=== PATIENT | female | born 1950 | race Caucasian/White ===

== ENCOUNTER 2018-05-05 08:37 | Emergency (ER) | payer MEDICARE, OTHER ==
[~2018-05-05] VITALS: Ht 170.2 cm; Wt 82.0 kg
[2018-05-05] MEDS ORDERED: LISI-170 PO (09:07)
[2018-05-05] MEDS ORDERED: CLON0.5T11 PO (09:08)
[2018-05-05] MEDS ORDERED: CYCL-259 PO (09:09)
[2018-05-05] MEDS ORDERED: DORZ10DR26 LEFTEYE (09:10)
[2018-05-05] MEDS ORDERED: TRAV5DRO LEFTEYE (09:11)
[2018-05-05] MEDS ORDERED: PRED1DRO EACHEYE (09:12)
[2018-05-05 11:16] VITALS: BP 145/86
[2018-05-05] MEDS ORDERED: NITROGLYCERIN SINGLE TAB 0.4 MG SL ONE (12:39)
== END 2018-05-05 11:18 | disposition home or self-care (01) ==
LOC: ED 11:13
DX: M17.11 Unilateral primary osteoarthritis, right knee (principal); G35 Multiple sclerosis; I10 Essential (primary) hypertension; Z87.891 Personal history of nicotine dependence
CPT/HCPCS: 99284